=== PATIENT | female | born 1975 | race Caucasian/White ===

== ENCOUNTER 2021-01-10 08:04 | Emergency (ER) | payer OTHER ==
[~2021-01-10 08:04] MED LIST: BENTYL 20MG TAB20 MG PO; COLACE 100MG C100 MG PO; HYDROCODON-ACE1 EAC4 PO; IBUPROFEN600 MG PO; LOVENOX SY40 MG/0.4 SQ; MOBIC7.5 MG PO; NORCO 10-325 T1 EACH PO; OMEPRAZOLE20 M1 PO; PERCOCET 5-3251 EACH PO; PHENERGAN 12.12.5 M1 PO; PREDNISONE20 MG PO; PROTONIX40 MG PO; TRAMADOL HCL50 MG PO; TYLENOL 500 MG500 MG PO; ZANAFLEX2 MG PO; ZOFRAN 4 MG TAB4 MG PO; ZOFRAN ODT 4 MG4 MG SL
[2021-01-10] MEDS ORDERED: CEPHALEXIN500 MG PO (10:24)
== END 2021-01-10 10:40 | disposition home or self-care (01) ==
LOC: ER1 08:04
DX: S21.231A Puncture wound without foreign body of right back wall of thorax without penetration into thoracic cavity, initial encounter (principal); J44.9 Chronic obstructive pulmonary disease, unspecified; F17.210 Nicotine dependence, cigarettes, uncomplicated; Z88.6 Allergy status to analgesic agent; W26.8XXA Contact with other sharp object(s), not elsewhere classified, initial encounter; Z23 Encounter for immunization
CPT/HCPCS: 71046; 90471; 90715; 99283

== ENCOUNTER 2021-06-26 18:39 | Emergency (ER) | payer OTHER ==
[~2021-06-26 18:39] MED LIST changes: +CEPHALEXIN500 MG PO
[2021-06-26 20:22] LABS: HEMOGLOBIN 13.3 gm/dl (12.3-15.3); RED BLOOD COUNT 4.42 M/UL (4.00-5.10); WHITE BLOOD COUNT 8.4 K/UL (4.5-11.0)
[2021-06-26 20:49] LABS: BUN/CREATININE RATIO 16 (0-10)
== END 2021-06-26 19:27 | disposition left against medical advice (07) ==
LOC: ER1 18:39
PROVIDERS: Physician Assistant
DX: R10.84 Generalized abdominal pain (principal); R19.7 Diarrhea, unspecified; R06.00 Dyspnea, unspecified; F17.210 Nicotine dependence, cigarettes, uncomplicated; Z90.710 Acquired absence of both cervix and uterus; Z20.822 Contact with and (suspected) exposure to COVID-19
CPT/HCPCS: 0240U; 71045; 80053; 83605; 83690; 83735; 83880; 85025; 85652; 86140; 99284

== ENCOUNTER 2022-03-20 14:24 | Emergency (ER) | payer OTHER ==
[2022-03-20 16:54] LABS: HEMOGLOBIN 14.3 gm/dl (12.3-15.3); RED BLOOD COUNT 4.6 M/UL (4.00-5.10); WHITE BLOOD COUNT 7.9 K/UL (4.5-11.0)
[2022-03-20 17:15] LABS: BUN/CREATININE RATIO 25 (0-10)
[2022-03-20] MEDS ORDERED: OMNICEF 300 MG300 MG PO (20:02)
[2022-03-20] MEDS ORDERED: BENTYL 20MG TAB20 MG PO (20:02)
[2022-03-20] MEDS ORDERED: ZOFRAN ODT 4 MG4 MG PO (20:02)
== END 2022-03-20 20:50 | disposition home or self-care (01) ==
LOC: ER1 14:24
PROVIDERS: Physician Assistant
DX: N30.00 Acute cystitis without hematuria (principal); N83.202 Unspecified ovarian cyst, left side; J44.9 Chronic obstructive pulmonary disease, unspecified; F17.210 Nicotine dependence, cigarettes, uncomplicated; Z20.822 Contact with and (suspected) exposure to COVID-19
CPT/HCPCS: 80053; 81001; 83690; 84703; 85025; 87086; 99284; Q9967; U0002